=== PATIENT | female | born 1950 | race Caucasian/White ===

== ENCOUNTER 2017-05-16 07:00 | Day surgery (SDC) | payer OTHER | END 2017-05-17 08:00 | disposition home or self-care (01) | LOC: OB/GYN 07:00 → O/R 07:00 → CIR.AMB 07:00 → O/R 07:02 → OB/GYN 07:02 → O/R 16:47 → OB/GYN 16:47 → EDSTATUS 17:15 → CIR.AMB 05-17 08:00 → OB/GYN 05-17 11:57 → O/R 05-17 11:57 | DX: C54.9 Malignant neoplasm of corpus uteri, unspecified (principal); N95.0 Postmenopausal bleeding; I10 Essential (primary) hypertension ==